=== PATIENT | male | born 1990 | race Caucasian/White ===

== ENCOUNTER 2016-08-08 22:17 | Emergency (ER) | payer MEDICAID, OTHER ==
[~2016-08-08] VITALS: Ht 167.6 cm; Wt 70.0 kg
[~2016-08-08 22:17] MED LIST: DEPA250T2 PO; QUET1TAB67 PO
[2016-08-08 22:19] VITALS: BP 133/78; PULSE 71; RESP 16; TEMP 97.8; O2SAT 97
--- NOTE | 2016-08-08 23:03 | PD ---
HPI Chief Complaint: Seizure Time Seen by Provider: 22:53 Travel History International Travel<30 days: No Contact w/Intl Traveler<30days: No Traveled to known affect area: No History of Present Illness HPI 26-year-old man, history of traumatic brain injury, seizures, not taking medication, presents after possible seizure today. States early this afternoon he was seated, woke up on the ground with people around him. He hit the side of his head. He thinks he may have had a seizure. He is not sure. He has a little bit of tenderness on the side of his head. A little bit of mild headache. He is prone to chronic headaches. He went home and ate the felt a little bit confused and so he came in. He feels back to normal now. He otherwise has been feeling generally well except for the cough cold. No other complaints. History Past Medical History Narrative Medical Dramatic brain injury, seizure, migraines Tetanus Vaccination: < 5 Years Influenza Vaccination: No Social History Alcohol Use: No Tobacco Use: Yes (1.5 ppd) Allergies-Medications (Allergen,Severity, Reaction): Coded Allergies: No Known Allergies (Unverified , 08/08/16) Reported Meds & Prescriptions Reported Meds & Active Scripts Active No Active Prescriptions or Reported Medications Review of Systems Except as stated in HPI: all other systems reviewed are Neg Physical Exam Narrative GENERAL: 26 year-old man, no acute distress. SKIN: Warm and dry. HEAD: Patient has abnormal contour to front of his head from previous surgery with some scarring. His a tender nodule to the left parietal area. EYES: Pupils equal and round. No scleral icterus. No injection or drainage. ENT: No nasal bleeding or discharge. Mucous membranes pink and moist. NECK: Trachea midline. No JVD. Moves neck freely. No meningismus. CARDIOVASCULAR: Regular rate and rhythm. No murmur appreciated. RESPIRATORY: No accessory muscle use. Clear to auscultation. Breath sounds equal bilaterally. GASTROINTESTINAL: Abdomen soft, non-tender, nondistended. Hepatic and splenic margins not palpable. MUSCULOSKELETAL: No obvious deformities. No clubbing. No cyanosis. No edema. NEUROLOGICAL: Awake and alert. No obvious cranial nerve deficits. Motor grossly within normal limits. Normal speech. Data Data Last Documented VS Vital Signs Date Time Temp Pulse Resp B/P Pulse Ox O2 Delivery O2 Flow Rate FiO2 08/08/16 22:29 Room Air 08/08/16 22:19 97.8 71 16 133/78 97 [facility] Medical Decision Making Medical Screen Exam Complete: Yes Emergency Medical Condition: Yes Differential Diagnosis Seizure, head injury, syncope, other Narrative Course Medical decision-making new 26-year-old man with a history of seizures, not taking medications, presents after possible seizure. Looks well. Hit his head at a fall from a seated position. Some mild headache. Looks otherwise well. Offered CT scan now. I think is unlikely to yield anything. Patient would prefer to wait and if he is not feeling back to normal tomorrow will return for repeat evaluation. Defer labs or imaging. Diagnosis Primary Impression: Closed head injury Qualified Code: S09.90XA - Closed head injury, initial encounter Additional Impression: Seizure Additional Instructions: Do not drive or operate heavy machinery until cleared by neurology. You should avoid being in any situation where if you had a seizure it could be dangerous such as swimming, looking on a ladder, or other such activities. Return to the emergency department for any seizures lasting more than 5 minutes , [id number] seizures, or seizures with prolonged confusion afterwards. Med/Other Pt SpecificInfo: No Change to Meds Scripts No Active Prescriptions or Reported Meds Disposition: 01 DISCHARGE HOME Condition: Stable Galen Nguyen MD Aug 08, 2016 23:02
--- NOTE | 2016-08-09 12:09 | EKG ---
Date Performed: 08/08/2016 Time Performed: 22:31:45 PTAGE: 26 years EKG: Sinus rhythm BORDERLINE RIGHT AXIS DEVIATION INCOMPLETE RIGHT BUNDLE BRANCH BLOCK BORDERLINE ECG INTERPRETATION B ASED ON A DEFAULT AGE OF 41 YEARS NO PREVIOUS TRACING DOCTOR: Basil Diaz Interpretating Date/Time 08/09/2016 12:06:48
== END 2016-08-08 23:20 | disposition home or self-care (01) ==
LOC: NEPE 22:17
DX: S09.90XA Unspecified injury of head, initial encounter (principal); R56.9 Unspecified convulsions; R41.0 Disorientation, unspecified; R05 Cough; R94.31 Abnormal electrocardiogram [ECG] [EKG]; F17.200 Nicotine dependence, unspecified, uncomplicated; Z86.69 Personal history of other diseases of the nervous system and sense organs; W07.XXXA Fall from chair, initial encounter
CPT/HCPCS: 93005; 99283